=== PATIENT | male | born 1940 | race Caucasian/White ===

== ENCOUNTER 2019-05-15 07:18 | Observation (INO) ==
--- NOTE | 2019-05-15 07:40 | PROVIDER DOCUMENTATION ---
HPI-Neurological Disorder - General Chief Complaint: Stroke-Like Symptoms Stated Complaint: STROKE-LIKE SYMPTOMS Time Seen by Provider: 05/15/19 07:25 Source: patient, family () Allergies/Adverse Reactions: Patient Allergies Allergy/AdvReac Type Severity Reaction Status Date / Time Sulfa (Sulfonamide AdvReac Severe RASH Verified 05/15/19 07:27 Antibiotics) Home Medications: Home Medication List Medication Instructions Recorded Confirmed Last Taken Type Amlodipine [Norvasc] 10 mg PO DAILY 01/12/14 01/13/16 12/05/14 09:00 History Aspirin 81 mg PO DAILY #0 chewtab 01/12/14 03/20/17 12/04/14 Rx Calcium 500 mg PO DAILY 12/05/14 01/13/16 12/05/14 History ATORVAstatin [Lipitor] 20 mg PO DAILY@2100 #0 tablet 12/06/14 01/13/16 Unknown Rx Cyanocobalamin S.l. [Vitamin B-12] 2,500 microgm SL DAILY #30 tablet 12/06/14 03/20/17 Unknown Rx Hydrochlorothiazide 25 mg PO DAILY #0 12/06/14 03/20/17 12/05/14 09:00 Rx Allopurinol 1 tab PO DAILY 03/20/17 03/20/17 Unknown History Amlodipine Besylate 1 tab PO DAILY 03/20/17 03/20/17 Unknown History Clonazepam [Klonopin] 0.5 mg PO QHS 03/20/17 03/20/17 Unknown History Clopidogrel Bisulfate [Plavix] 03/20/17 Unknown History Pravastatin Sodium 1 tab PO DAILY 03/20/17 03/20/17 Unknown History Cephalexin [Keflex] 500 mg PO BID #14 capsule 03/25/17 Unknown Rx - History of Present Illness-Neuro Nature of Presenting Problem: PT IS A 78 Y/O MALE WHO PRESENTS WITH NUMBNESS ON THE LEFT SIDE OF FACE, LEFT ARM AND LEFT LEG SINCE 30 MINUTES PRIOR TO ARRIVAL PER . pER PT WAS GETTING READY TO DROP OFF HIS GRANDSON TO SCHOOL AND STARTED DROPPING THINGS AND FEELING NUMB. HAS BEEN WEAK AND SHAKY IN THE FEET. HAS SOME R TEMPORAL HEADACHE AND SOME NAUSEA (PER HE ALWAYS HAS A HEADACHE). DENIES ANY FALL OR SPEECH CHANGES. PT DENIES ANY DIZZINESS, LIGHTHEADEDNESS OR VOMITING. PER PT HE ALSO HAS MILD CHEST PAIN. DENIES ANY COUGH OR SOB OR NAUSEA OR VOMITING OR FEVER OR ANY URI SYMPTOMS. HAS HX OF HTN AND CAD S/P ANGIOPLASTY. Severity: reports: mild Onset/Duration: reports: abrupt, 1/2 hour ago Timing: reports: improving Context: reports: paresthesia Approximate time patient was last seen normal?: 06:50 Character of Altered Mental Status: reports: unchanged from baseline. denies: disoriented, confused, combative, agitated, trouble concentrating, unresponsive, seizure activity, decreased responsiveness Any recent trauma/injury?: reports: none Character of Deficits: reports: altered sensation New weakness or altered sensation location:: reports: LUE, LLE, left facial Cognitive Baseline: alert, oriented x3 Gait Baseline: stands for transfers Associated Symptoms: reports: decreased ability to walk or stand, chest pain, paresthesia, trouble walking. denies: short of breath, headache, fainting, dizziness, confusion, neck/back pain, fatigue, fever/chills, insomnia, loss of consciousness, muscle spasms, nausea, numbness in legs/feet, diaphoretic, seizures, slurred speech, tingling in legs/feet, vomiting, vision changes, weakness Similar Symptoms Previously?: No Recently seen or treated by another doctor?: No Review of Systems - Adult - REVIEW OF SYSTEMS - ADULT Constitutional: denies: no symptoms reported Eyes: denies: no symptoms reported Ears, Nose, Mouth & Throat: denies: no symptoms reported Cardiovascular: reports: see HPI Respiratory: denies: no symptoms reported Gastrointestinal: denies: no symptoms reported Genitourinary: denies: no symptoms reported Musculoskeletal: denies: no symptoms reported Integumentary: denies: no symptoms reported Neurological: reports: see HPI Psychiatric: denies: no symptoms reported Endocrine: denies: no symptoms reported Hematologic/Lymphatic: denies: no symptoms reported Allergic/Immunologic: denies: no symptoms reported Past History - Adult - PAST MEDICAL HISTORY-ADULT Review of Records: reports: Old Records Reviewed, Nursing Assessment Review, Medications Reviewed, Social history reviewed & non-contributory. Major Childhood Illnesses: reports: denies history Cardiovascular: reports: CAD, HTN, hyperlipidemia Respiratory: reports: denies history Gastrointestinal: reports: denies history Genitourinary: reports: kidney stones Musculoskeletal: reports: intervertebral disc disease Neurological: reports: CVA Psychiatric: reports: denies history Endocrine/Immune: reports: denies history Additional History: gout - PRIOR SURGERIES/PROCEDURES Surgical/Procedure History: reports: cardiac stent, other (lithotripsy) - IMMUNIZATION STATUS Childhood Immunizations: See Nurse Assessment Flu Vaccine: See Nurse Assessment - FAMILY HISTORY Family History: reviewed, not pertinent Physical Exam- Neurological - Physical Exam-Neuro Initial Vital Signs Reviewed: Yes General Appearance: appears well, alert, no apparent distress Eye Exam: bilateral eye: normal inspection, PERRL, EOMI HENMT: normocephalic/atraumatic, moist mucous membranes, normal ENT inspection, pharynx normal Head Injury: no evidence of injury Neck: non-tender, supple Respiratory: lungs clear, normal breath sounds, no respiratory distress, no a ccessory muscle use Cardiovascular: normal peripheral pulses, regular rate, rhythm, no murmur Abdominal Exam: non tender, soft Peripheral Pulses: radial (R): 2+, radial (L): 2+ Extremity: non-tender, normal inspection, 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 Exam: normal hearing, normal speech, PERRL Coordination/Gait: normal finger to nose, normal gait Motor/Sensory: no motor deficit, no pronator drift Neurologic: motor grader operator II-XII nml as tested, grossly normal Integumentary: normal color, warm/dry Psych/Mental Status: normal thought content, normal thought process, oriented x 3, anxious - Glascow Coma Scale Best Eye Response: (4) open spontaneously Best Verbal Response: (5) oriented Best Motor Response: (6) obeys commands Progress - PLAN OF CARE/RESULTS Progress/Plan/Lab Results: Vital Signs - 8 hr 05/15/19 07:22 Temperature 99.2 F Pulse Rate 55 L Respiratory Rate 24 Blood Pressure 210/84 O2 Sat by Pulse Oximetry 100 Laboratory Results - last 24 hr 05/15/19 05/15/19 05/15/19 07:45 07:45 07:45 WBC 4.54 L RBC 4.42 L Hgb 14.2 Hct 40.8 L MCV 92.3 MCH 32.1 H MCHC 34.8 RDW Std Deviation 13.5 Plt Count 161 MPV 11.0 H Immature Gran % (Auto) 0.0 Neut % (Auto) 51.9 Lymph % (Auto) 28.6 [place] % (Auto) 12.3 H Eos % (Auto) 6.8 Baso % (Auto) 0.4 Immature Gran # (Auto) 0.00 Neut # (Auto) 2.35 Lymph # (Auto) 1.30 [place] # (Auto) 0.56 Eos # (Auto) 0.31 Baso # (Auto) 0.02 PT INR PTT (Actin FS) Sodium Potassium Chloride Carbon Dioxide Anion Gap BUN Creatinine BUN/Creatinine Ratio Glucose POC Glucose Calculated Osmolality Calcium Total Bilirubin AST ALT Alkaline Phosphatase Creatine Kinase 71 Troponin T < 0.010 Total Protein Albumin Globulin Albumin/Globulin Ratio 05/15/19 05/15/19 05/15/19 07:45 07:45 07:49 WBC RBC Hgb Hct MCV MCH MCHC RDW Std Deviation Plt Count MPV Immature Gran % (Auto) Neut % (Auto) Lymph % (Auto) [place] % (Auto) Eos % (Auto) Baso % (Auto) Immature Gran # (Auto) Neut # (Auto) Lymph # (Auto) [place] # (Auto) Eos # (Auto) Baso # (Auto) PT 13.8 INR 1.01 PTT (Actin FS) 29.7 Sodium 141 Potassium 4.3 Chloride 107 Carbon Dioxide 25 Anion Gap 10 BUN 18 Creatinine 1.3 H BUN/Creatinine Ratio 14 Glucose 84 POC Glucose 83 Calculated Osmolality 279 Calcium 8.4 L Total Bilirubin 0.80 AST 14 ALT 6 L Alkaline Phosphatase 53 Creatine Kinase Troponin T Total Protein 6.1 L Albumin 3.9 Globulin 2.0 Albumin/Globulin Ratio 2.0 Orders Category Date Time Status Cardiac Monitoring DIRECTED Care 05/15/19 07:25 Active Finger Stick Blood Sugar (ED) DIRECTED Care 05/15/19 07:25 Completed Saline Loc NOW Care 05/15/19 07:25 Active CHEST-PORTABLE [RAD] Stat Exams 05/15/19 07:[address] HEAD W/O CONTRAST [CT] Stat Exams 05/15/19 07:30 Completed CBC WITH ELECTRONIC DIFF [HEME] Stat Lab 05/15/19 07:45 Completed COMPREHENSIVE METABOLIC PANEL [CHEM] Stat Lab 05/15/19 07:45 Completed Cardiac Profile [CK PROFILE] [SP CHEM] Stat Lab 05/15/19 07:45 Completed PROTIME WITH INR [COAG] Stat Lab 05/15/19 07:45 Completed PTT [COAG] Stat Lab 05/15/19 07:45 Completed TROPONIN T Stat Lab 09/19/19 07:[address] W/POSS RFLX CULT [URINALYSIS] Stat Lab 05/15/19 07:25 Uncollected URINE DRUG SCREEN PL Stat Lab 05/15/19 07:25 Uncollected Aspirin Med 05/15/19 08:08 Discontinued 325 mg PO NOW ONE Ondansetron [Zofran] Med 05/15/19 08:12 Discontinued 4 mg IV NOW ONE EKG [EKG] Stat Ther 05/15/19 07:25 Draft Result Diagrams: 05/15/19 07:45 05/15/19 07:45 - REASSESSMENT Reassessment #1 Time Reassessed: 09:45 Status: improving - CONSULTS/PCP/HOSPITALIST Notification #1 *Consult/PCP/Hospitalist*: DR DRISCOLL Time Discussed: 09:53 Consult Disposition: Admit Departure - Departure Date of Disposition Decision: 05/15/19 Time of Disposition Decision: 09:55 DIAGNOSIS: TIA (transient ischemic attack), Uncontrolled hypertension, Sinus bradycardia Disposition: HOME 01 Certified Medical Emergency: Emergent Condition: Stable Referrals and Follow-Ups: Paula Chan MD [Primary Care Provider] - - Critical Care Note This patient required my direct & personal management of CC.: No Attestation - Physician/ GERRI Attestation Patient care was provided by Advanced Practice Provider:: No The physician spent face to face time with patient:: Yes Advanced Practice Provider documentation review:: Supervising physician onsite and consulted in the evaluation and care of this patient. The physician did have a face to face encounter with the patient. - NIH Stroke Scale NIH Type: Initial Evaluation Level of Consciousness: 0-Alert LOC Questions (ask month and age): 0-Answers Both Correctly LOC Commands (ask to open & close eyes;make a fist, let go): 0-Obeys Both Correctly Best Gaze (horizontal eye movement): 0-Normal Visual (use finger movement, counting or visual threat): 0-No Visual Loss Facial Palsy (show teeth or raise eyebrows & close eyes tght: 0-Symmetrical Movement Motor Function-left arm: 0-Normal Motor Function-right arm: 0-Normal Motor Function-left le-Normal Motor Function-right le-Normal Limb Ataxia(riqkak-dexn-dczxob, or heel to gaming): 0-Untestable Sensory(pin prick to face,arms,trunk,legs-compare side/side): 1-Mild to Moderate Decrease in Sensation (LLE - HAS MILD DECREASED SENSATION COMPAREED TO REST OF THE EXTREMITIES) Best Language(name item/read sentence.Ex-Down to Earth): 0-No Aphasia Dysarthria(Pt read words or say words Ex.Mama,Tip-Top,Thanks: 0-Normal Articulation Extinction and Inattention: 0-Normal NIH Total Score: 1
--- NOTE | 2019-05-15 07:46 | Diag Imaging Result Doc PS360 ---
EXAM: CT HEAD W/O CONTRAST - 05/15/2019 HISTORY: stroke like sym TECHNIQUE: CT head without contrast COMPARISON: 03/20/2017 FINDINGS: There are chronic microvascular ischemic changes. There is stable old lacunar infarct versus dilated perivascular space at the inferior right basal ganglia region. There is no indication of recent infarct, although acute infarcts may not be immediately visible. There are atherosclerotic calcifications noted at the base the brain. There is no evidence of intracranial hemorrhage, mass effect, midline shift, or hydrocephalus. There is no evidence of skull fracture. Visualized portions of paranasal sinuses and mastoid air cells appear essentially clear. IMPRESSION: Chronic microvascular ischemic changes No visible acute intracranial abnormality. No hemorrhage or mass effect. This exam was performed using automated exposure control, adjustment of mA or kV according to patient size, and/or use of iterative reconstruction technique. Electronically signed by Boaz Negrete 05/15/2019 7:43 AM
--- NOTE | 2019-05-15 07:48 | Diag Imaging Result Doc PS360 ---
EXAM: CHEST-PORTABLE - 05/15/2019 HISTORY: TIA TECHNIQUE: Portable chest COMPARISON: 03/20/2017 FINDINGS: Heart size appears within normal limits. There is some tortuosity of the thoracic aorta similar to prior. There is slight elevation of the left hemidiaphragm. The lungs appear clear. There is no pleural effusion or pneumothorax identified. IMPRESSION: Slight elevation of left hemidiaphragm. No other evidence of acute disease. Electronically signed by Boaz Negrete 05/15/2019 7:45 AM
[2019-05-15 07:58] LABS: BASO# 0.02 X1000 (0.0-0.2); BASO% 0.4 % (0.0-0.8); EOS# 0.31 X1000 (0.0-0.7); EOS% 6.8 % (0.0-10.0); HEMATOCRIT 40.8 % (42.0-52.0); HEMOGLOBIN 14.2 g/dL (14.0-18.0); LYMPH% 28.6 % (20.5-51.1); MCH 32.1 PG (27-31); MCHC 34.8 g/dL (33-37); MCV 92.3 FL (81-99); MONO# 0.56 X1000 (0.11-0.59); MONO% 12.3 % (1.7-9.3); NEUT# 2.35 X1000 (1.4-6.5); NEUT% 51.9 % (42.2-75.2); PLT 161 X1000 (130-400); RBC 4.42 XMIL (4.7-6.1); RDW 13.5 % (11.5-14.5); WBC 4.54 X1000 (4.8-10.8)
--- NOTE | 2019-05-15 08:05 | EKG Report ---
Test Performed on : 05/15/2019 07:47:42 AM Test Reason : TIA Blood Pressure : / mmHG Vent. Rate : 047 BPM Atrial Rate : 047 BPM P-R Int : 180 ms QRS Dur : 094 ms QT Int : 446 ms P-R-T Axes : 052 -09 077 degrees QTc Int : 394 ms Sinus bradycardia. Cannot rule out Anterior infarct , age undetermined Abnormal ECG When compared with ECG of 20-MAR-2017 19:02, HI interval has decreased T wave amplitude has increased in Anterior leads Unconfirmed Result
[2019-05-15] MEDS ORDERED: ASPIRIN PO ONE (08:08)
[2019-05-15] MEDS ORDERED: ZOFRAN IV ONE (08:12)
[2019-05-15 08:15] LABS: INR 1.01; PROTIME 13.8 Seconds (11.0-16.0)
[2019-05-15 08:16] LABS: PTT 29.7 Seconds (22.3-41.8)
[2019-05-15 09:10] LABS: AGAP 10; BUN 18 mg/dL (8-22); CALCIUM 8.4 mg/dL (8.8-10.2); COSMO 279; CREATININE 1.3 mg/dL (0.7-1.2); GLUCOSE 84 mg/dL (70-104); TCO2 25 mmol/L (25-35)
[2019-05-15 09:11] LABS: ALBUMIN 3.9 g/dL (3.5-5.0); ALKALINE PHOSPHATASE 53 U/L (32-122); GPT 6 U/L (10-44); TOTAL PROTEIN 6.1 g/dL (6.3-8.3)
[2019-05-15 09:12] LABS: CHLORIDE 107 mmol/L (98-107); GOT 14 U/L (10-34); POTASSIUM 4.3 mmol/L (3.5-5.1); SODIUM 141 mmol/L (136-145)
--- NOTE | 2019-05-15 10:03 | ED EKG INTERP ---
This chart was entered by Paty Jama Scribe, acting as scribe for Rika Albright MD. EKG Interpretation - EKG Time of EKG reading by physician:: 07:47 EKG Read and Signed by:: Rika Albright EKG Interpretation (*Must complete 3 of following elements*): Abnormal Rate: 47 Rhythm: sinus bradycardia [place]: normal QRS: normal [place] Interval: normal ST Wave: normal Comments: cannopt rule out anterior infarct, age undetermined - EKG # 2 Time of EKG reading by physician:: 09:21 EKG Read and Signed by:: Rika Albright EKG Interpretation (*Must complete 3 of following elements*): Abnormal Rate: 44 Rhythm: marked sinus bradycardia [place]: normal QRS: normal [place] Interval: normal ST Wave: normal Prior EKG Comparison: unchanged from prior Comments: cannot rule out anterior infarct, age undetermined Attestation - Physician/ GERRI Attestation Patient care was provided by Advanced Practice Provider:: No The physician spent face to face time with patient:: Yes Advanced Practice Provider documentation review:: Supervising physician onsite and consulted in the evaluation and care of this patient. The physician did have a face to face encounter with the patient. This chart was documented by the indicated scribe, (Paty Jama Scribe) and accurately reflects the services I performed and decisions made by meNatalee Aslam A., MD, as attested by the provider's signature.
[2019-05-15] MEDS ORDERED: NORVASC PO ONE (10:05)
--- NOTE | 2019-05-15 12:06 | EKG Report ---
Test Performed on : 05/15/2019 09:21:45 AM Test Reason : ER Blood Pressure : / mmHG Vent. Rate : 044 BPM Atrial Rate : 044 BPM P-R Int : 196 ms QRS Dur : 084 ms QT Int : 458 ms P-R-T Axes : 049 -05 058 degrees QTc Int : 391 ms Marked sinus bradycardia. Cannot rule out Anterior infarct (cited on or before 15-MAY-2019) Abnormal ECG When compared with ECG of 15-MAY-2019 07:47, (Unconfirmed) No significant change was found Unconfirmed Result
[2019-05-15] MEDS ORDERED: APRESOLINE IV ONE (12:15)
[2019-05-15] MEDS ORDERED: ZOFRAN IV PRN (12:16)
[2019-05-15] MEDS: TYLENOL PO PRN ×2 (12:29→19:54)
[2019-05-15 12:54] LABS: CHOLESTEROL 127 mg/dL (0-200); HDL 32 mg/dL (35-55); LDL 79 mg/dL; TRIGLYCERIDES 78 mg/dL (39-160); VLDL 16 mg/dL
--- NOTE | 2019-05-15 14:39 | Vascular Study Report ---
EXAM: Carotid Ultrasound - 05/15/2019 HISTORY: TIA vs CVA TECHNIQUE: Carotid flow studies COMPARISON: None. FINDINGS: There is atherosclerotic plaquing at the common carotid, carotid bulb, and proximal internal carotid on the right. Maximal systolic velocity at the right internal carotid is 59 cm/s, and maximum diastolic velocity is 10 cm/s. The right internal to common carotid systolic velocity ratio is 0.70. The flow velocities and ratio are consistent with 0-39% stenosis at the right internal carotid. The right vertebral demonstrates antegrade flow. There is atherosclerotic plaquing at the common carotid, carotid bulb, and proximal and mid internal carotid on the left. Maximum systolic velocity at the left internal carotid is 81 cm/s, and maximum diastolic velocity is 12 cm/s. The left internal to common carotid systolic velocity ratio is 1.13. The flow velocities and ratio are consistent with 0-39% stenosis at the left internal carotid. The left vertebral demonstrates antegrade flow. IMPRESSION: Atherosclerotic plaquing in bilateral carotid systems. 0-39% stenosis at right internal carotid. 0-39% stenosis at left internal carotid. Electronically signed by Boaz Negrete 05/15/2019 2:37 PM
[2019-05-15] MEDS: NORVASC PO SCH (14:58)
[2019-05-15 17:20] LABS: BILIRUBIN URINE NEGATIVE (NEGATIVE); BLOOD URINE NEGATIVE (NEGATIVE); CLARITY CLEAR (CLEAR); COLOR YELLOW; GLUCOSE URINE NEGATIVE (NEGATIVE); KETONE URINE NEGATIVE (NEGATIVE); LEUKOCYTES URINE NEGATIVE (NEGATIVE); NITRITE URINE NEGATIVE (NEGATIVE); PROTEIN URINE NEGATIVE (NEGATIVE); SP GRAVITY URINE 1.015; UROBILINOGEN URINE NORMAL
[2019-05-15 17:22] LABS: URINE BACTERIA NEGATIVE /HFP; URINE EPITHELIAL CELLS <10 /HPF (<10); URINE RBC <10 /HPF (<10); URINE SOURCE CLEAN CATCH; URINE WBC <10 /HPF (<10)
[2019-05-15 17:29] LABS: UR AMPHETAMINES QUAL NONE DETECTED (NONE DETECT); UR BARBITUATES QUAL NONE DETECTED (NONE DETECT); UR BENZODIAZEPIN QUAL NONE DETECTED (NONE DETECT); UR CANNABINOIDS QUAL NONE DETECTED (NONE DETECT); UR COCAINE QUAL NONE DETECTED (NONE DETECT); UR METHADONE QUAL NONE DETECTED (NONE DETECT); UR METHAMPHETAMINE QUAL NONE DETECTED (NONE DETECT); UR OPIATES QUAL NONE DETECTED (NONE DETECT); UR OXYCODONE QUAL NONE DETECTED (NONE DETECT); UR PCP QUAL NONE DETECTED (NONE DETECT); UR PROPOXYPHENE QUAL NONE DETECTED (NONE DETECT); UR TCA QUAL NONE DETECTED (NONE DETECT)
--- NOTE | 2019-05-15 19:07 | HISTORY AND PHYSICAL ---
CHIEF COMPLAINT: Stroke-like symptoms. HISTORY OF PRESENT ILLNESS: This is an 78-year-old gentleman, with a history of bradycardia, coronary artery disease, CVA in 2014, who presented to the emergency room with a sudden onset of left arm, left leg numbness and decreased sensation, unable to hold things with his left hand, and numbness to the left side of his face with slurred speech. This started at approximately 7 a.m. He denied any syncope or dizziness, any chest pain or palpitations. He denies any recent injury. CT scan revealed chronic microvascular ischemic changes with no visible acute intracranial abnormality, and no hemorrhage or mass effect. At the time of my exam, approximately 12:00, the patient denies any symptoms. His speech is clear. He has no facial droop. He states he feels that he is at his baseline. The and other family member state that they notice no deficits. The patient was admitted to the hospital in November [address] of the head and neck at that time revealed no evidence of significant stenosis. Brain MRI revealed a recent left basal ganglia lacunar infarct in addition to moderate microvascular ischemic changes. PAST MEDICAL HISTORY: 1. Gout. 2. Coronary artery disease, status post stent in 2017. Lexiscan, 05/06/2019, revealed a negative Lexiscan stress electrocardiogram with myocardial perfusion images revealing low-grade fixed defect in the base of the inferior wall, suggestive of an attenuation defect. Cannot rule out scar, which was present in a prior echocardiogram. Ejection fraction by gated SPECT was 68%. Of note, the patient did have chest pain with Lexiscan injection during the Lexiscan infusion, for which she was given 125 mg of aminophylline. 3. Echocardiogram, on 05/06/2019, revealed ejection fraction of 60% with diastolic dysfunction. 4. Hyperlipidemia. 5. History of cerebrovascular accident with MRI in 2015 as stated above. He has no deficits. 6. Chronic headache that he has had for greater than 10 years. PAST SURGICAL HISTORY: 1. Cardiac stent. 2. Kidney stone removal. 3. Cataract surgery. SOCIAL HISTORY: He denies any alcohol, tobacco, or illicit drug use. 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 FAMILY HISTORY: Father had a CVA in his 70s. ALLERGIES: Sulfa. HOME MEDICATIONS: A list will be obtained by the nursing staff and once verified, will review, restart as appropriate. REVIEW OF SYSTEMS: Discussed with the patient with pertinent positives stated in the HPI. He denied any syncope, dizziness, any chest pain or palpitations, shortness of breath, cough, fever, chills, any nausea, vomiting, diarrhea, constipation, black or bloody vomitus or stools, hematuria, dysuria, frequency, urgency. PHYSICAL EXAMINATION: GENERAL: This is an 78-year-old gentleman who is walking in his room in no distress. VITAL SIGNS: Blood pressure is 191/75 with a heart rate of 56, respirations are 18, temperature is 97.7 degrees, with room air saturation 99%. EYES: Pupils are equal, round, react to light. EOMs are intact. Sclerae are anicteric. HEAD: Normocephalic, atraumatic. ENT: Mucous membranes are moist. NECK: Supple with trachea midline. No JVD. CARDIOVASCULAR: Regular rate and rhythm. S1 and S2 appreciated. No murmur. EXTREMITIES: Calves are nontender bilaterally. He has no lower extremity edema with peripheral pulses palpable x4 extremities. PULMONARY: Breath sounds are clear with no increased work of breathing noted. Chest rises and falls symmetric with respiration. GASTROINTESTINAL: Abdomen is soft, nontender, and nondistended with bowel sounds in all 4 quadrants. GENITOURINARY: No CVA nor suprapubic tenderness. SKIN: Warm and dry. NEUROLOGIC: Forehead is spared. He has equal nasal flaring. No tongue or uvula deviation. Speech is clear. No facial droop. EOMS intact. Shoulder shrug is equal. No plantar drift. He has 3/3 muscle strength to 4 extremities. Zmpspl-qf-owle 3/3 bilateral. Gait is steady. LABS: WBC is 4.5, with hemoglobin 14.2, hematocrit 40.8, platelets of 161,000. Sodium 141, potassium 4.3, BUN 18, creatinine 1.3, and glucose of 83. Troponin is less than 0.010. CT of the head revealed chronic microvascular ischemic changes. No visible acute intracranial abnormality. No hemorrhage or mass effect. Chest x-ray revealed slight elevation of left hemidiaphragm. No other evidence of acute disease. ASSESSMENT AND PLAN: 1. Hypertension. 10 mg of hydralazine now, identify his home medications and continue. 2. Sinus bradycardia. Telemetry, In looking back at the patient's past records, heart rates have been in the 40s to 60 range since back in 2013, 3. Transient ischemic attack. Symptoms have resolved completely, according to the patient, and family members do state that he is back to his baseline. We will continue with neurologic checks. Will check a lipid panel. carotid ultrasound. Of note, the patient had an echocardiogram 9 days prior. 4. Chronic kidney disease. Baseline creatinine has been 1.2 to 1.3. monitor labs daily. 5. History of cerebrovascular accident. Aware. 6. History of gout. The patient denies any symptoms. Further treatments pending hospital course. Plan was discussed with Dr. Lowe. Dictated by PABLO Champion for Fredy Lowe MD cc: PABLO Champion MD [facility]
[2019-05-15] MEDS ORDERED: BENADRYL PO PRN (22:48)
--- NOTE | 2019-05-16 02:11 | HISTORY AND PHYSICAL ---
ADDENDUM: Patient seen and examined by myself. Full note dictated and discussed with nurse practitioner. Patient presented to the hospital with stroke-like symptoms. The family notes that he had some slurred speech, facial drooping and left-sided weakness. All of this appears to be improved. We are going to admit him to the hospital, treat in the usual fashion, check carotid, place him on cholesterol medicine. Further order as needed. cc: Fredy Lowe MD
[2019-05-16 07:13] LABS: HEMATOCRIT 39.1 % (42.0-52.0); HEMOGLOBIN 13.5 g/dL (14.0-18.0); MCHC 34.5 g/dL (33-37); MCV 92.7 FL (81-99); RBC 4.22 XMIL (4.7-6.1); RDW 13.5 % (11.5-14.5)
[2019-05-16 07:41] LABS: ALBUMIN 3.5 g/dL (3.5-5.0); CALCIUM 8.1 mg/dL (8.8-10.2); CREATININE 1.2 mg/dL (0.7-1.2); POTASSIUM 3.7 mmol/L (3.5-5.1); TOTAL BILIRUBIN 0.6 mg/dL (0.20-1.00); TOTAL PROTEIN 5.5 g/dL (6.3-8.3)
[2019-05-16 08:17] VITALS: BP 182/67
[2019-05-16] MEDS: ZYLOPRIM PO SCH ×2 (08:21→08:22)
[2019-05-16] MEDS: NORVASC PO SCH (08:21)
[2019-05-16] MEDS ORDERED: VITAMIN B-12 SL SCH (09:00)
[2019-05-16] MEDS ORDERED: PAXIL PO SCH (09:00)
[2019-05-16] MEDS ORDERED: PRINIVIL PO SCH (09:00)
[2019-05-16] MEDS ORDERED: ASPIRIN PO SCH (09:00)
--- NOTE | 2019-05-16 14:48 | DISCHARGE SUMMARY ---
ADMISSION DATE: 05/15/2019 DISCHARGE DATE: 05/16/2019 DIAGNOSES: 1. Hypertension. 2. Transient ischemic attack. 3. Sinus bradycardia. 4. Chronic kidney disease. 5. History of prior cerebrovascular accident. 6. History of gout. DIAGNOSTICS: 1. Chest x-ray revealed slight elevation of left hemidiaphragm. No other evidence of acute disease. 2. CT of the head without contrast revealed chronic microvascular ischemic changes. No visible acute intracranial abnormality. No hemorrhage or mass effect. 3. Carotid Doppler, bilateral atherosclerotic plaquing in bilateral carotid systems, 0 to 39% stenosis at bilateral internal carotids. HOSPITAL COURSE: Mr. Abdullahi presented to the emergency room after having a sudden onset of left arm and left leg numbness and decreased sensation as well as slurred speech. This resolved shortly after arriving at the hospital and symptoms have not recurred. Workup as stated above. He was noted to be in sinus bradycardia in the 40s to 60 range and in reviewing his records, this has been his normal heart rate while in the hospital going back to 2013. He was hypertensive on arrival with blood pressure of 210/84 for which she was given hydralazine at 10 mg. Blood pressures decreased in the 160 to 180 over 60 to 70 range. We were able to identify his home medications and we did restart these this morning prior to discharge. DISCHARGE PHYSICAL EXAM: Vital signs: Blood pressure is 180/60 with a heart rate of 51, respirations are 18, temperature 97.7 degrees with room air saturations 98%. Cardiovascular: Regular rate and rhythm. S1, S2 appreciated. Calves are nontender bilateral with peripheral pulses palpable x4 extremities. He has no lower extremity edema. Pulmonary: Breath sounds are clear. No increased work of breathing noted. Chest rises and falls symmetric respiration. Gastrointestinal: Abdomen soft, nontender, nondistended. Bowel sounds in all 4 quadrants. Neurologic: Forehead is spared. He has equal nasal flaring. No tongue or uvula deviation. Speech is clear. No facial droop. EOMs are intact. Shoulder shrug is equal. No plantar drift. 3/3 muscle strength 4 extremities. [id number] 3/3 bilateral, heel knee to gaming 3/3 bilateral. Gait is steady. FOLLOWUP: With Dr. Paula Chan 05/19/2019 at 11:10 a.m.. He is being discharged home with family members in stable condition. He and his family members have been instructed to call to be seen sooner or return to the ER for any syncope, dizziness, chest pain, palpitations, shortness of breath, cough, temperature greater 101, any chills, any nausea, vomiting, diarrhea, constipation, black or bloody vomitus or stools, hematuria, dysuria, frequency, urgency, any change in gait, any recurrence of change in sensation to extremities, weakness, facial droop, change in speech or for any questions or concerns that he may have. He has been discharged home in stable condition with family members. Dictated by PABLO Champion for Fredy Lowe MD cc: PABLO Champion MD
--- NOTE | 2019-05-17 03:44 | DISCHARGE SUMMARY ---
ADMISSION DATE: 05/15/2019 DISCHARGE DATE: 05/16/2019 ADDENDUM: Patient seen and examined by myself. Full note dictated and discussed with nurse practitioner. On discharge, patient is awake, alert. All of his withdrawal symptoms have completely resolved. He is in no distress. We are going to discharge him home. He needs to take blood pressure medication as well as cholesterol medicine. Discussed this with Dennys Bradly. Please see full note. cc: Fredy Lowe MD
== END 2019-05-16 09:30 | disposition home or self-care (01) ==
LOC: P.ED 07:18 → P.MEDSURG 07:18 → SUATTDRO 10:10
PROVIDERS: ADMIT Family Medicine; ATTEND Family Medicine

== ENCOUNTER 2019-05-27 07:22 | Inpatient (IN) ==
[2019-05-27] MEDS ORDERED: ZOFRAN IV ONE ×2 (07:49→09:09)
[2019-05-27] MEDS ORDERED: MORPHINE IV ONE (07:49)
[2019-05-27 08:32] LABS: BASO# 0.01 X1000 (0.0-0.2); BASO% 0.2 % (0.0-0.8); EOS# 0.26 X1000 (0.0-0.7); HEMATOCRIT 40.4 % (42.0-52.0); HEMOGLOBIN 14.3 g/dL (14.0-18.0); IMM GRAN# 0.01 X1000 (0.0-0.04); IMM GRAN% 0.2 % (0.0-0.5); LYMPH# 1.57 X1000 (1.2-3.4); MCH 32.4 PG (27-31); MCHC 35.4 g/dL (33-37); MCV 91.4 FL (81-99); MONO# 0.54 X1000 (0.11-0.59); MONO% 10.3 % (1.7-9.3); MPV 11.4 FL (7.4-10.4); NEUT# 2.85 X1000 (1.4-6.5); NEUT% 54.3 % (42.2-75.2); PLT 141 X1000 (130-400); RBC 4.42 XMIL (4.7-6.1); RDW 13.2 % (11.5-14.5); WBC 5.24 X1000 (4.8-10.8)
[2019-05-27 08:37] LABS: PROTIME 13.7 Seconds (11.0-16.0)
[2019-05-27 08:49] LABS: ALBUMIN 4.1 g/dL (3.5-5.0); CREATININE 1.2 mg/dL (0.7-1.2); MAGNESIUM 1.8 mg/dL (1.5-2.7); POTASSIUM 4.6 mmol/L (3.5-5.1); TOTAL BILIRUBIN 0.8 mg/dL (0.20-1.00); TOTAL PROTEIN 5.9 g/dL (6.3-8.3)
[2019-05-27] MEDS ORDERED: APRESOLINE IV ONE ×2 (08:54→09:53)
[2019-05-27] MEDS ORDERED: ATIVAN IV ONE (09:09)
--- NOTE | 2019-05-27 09:40 | Diag Imaging Result Doc PS360 ---
EXAM: CHEST-PORTABLE HISTORY: sob TECHNIQUE: Chest single view COMPARISON: 05/15/2019 FINDINGS: The lungs are well expanded. The heart is not enlarged. The vessels are mildly distended. There are no infiltrates. No effusion identified. IMPRESSION: Mild pulmonary edema Electronically signed by Shankar Lemus 05/27/2019 9:37 AM
--- NOTE | 2019-05-27 10:08 | PROVIDER DOCUMENTATION ---
This chart was entered by Paty Jama Scribe, acting as scribe for Hazel Scott DO. HPI-General Adult - General Chief Complaint: Stroke-Like Symptoms Stated Complaint: "STROKE SYMPTOMS" Time Seen by Provider: 05/27/19 07:30 Source: patient, family () Allergies/Adverse Reactions: Patient Allergies Allergy/AdvReac Type Severity Reaction Status Date / Time Sulfa (Sulfonamide AdvReac Severe RASH Verified 05/27/19 07:36 Antibiotics) Home Medications: Home Medication List Medication Instructions Recorded Confirmed Last Taken Type Amlodipine [Norvasc] 10 mg PO DAILY 01/12/14 05/27/19 12/05/14 09:00 History Aspirin 81 mg PO DAILY #0 chewtab 01/12/14 05/27/19 12/04/14 Rx Cyanocobalamin S.l. [Vitamin B-12] 2,500 microgm SL DAILY #30 tablet 12/06/14 05/27/19 Unknown Rx Allopurinol 1 tab PO DAILY 03/20/17 05/27/19 Unknown History Pravastatin Sodium 1 tab PO HS 03/20/17 05/27/19 Unknown History Paroxetine HCl 20 mg PO DAILY 05/15/19 05/27/19 Unknown History LISINOpril [Prinivil] 5 mg PO DAILY #30 tab 05/16/19 05/27/19 Unknown Rx Clopidogrel [Plavix] 75 mg PO DAILY #30 tab 05/28/19 Unknown Rx Hydralazine [Apresoline] 25 mg PO TID PRN #90 tab 05/28/19 Unknown Rx - History of Present Illness -Gen Adult Nature of Presenting Problems: 78 yom presents to the ed via POV with his . pt had onset of ROSE last night but when woke @ 0700 am ROSE had worsened and pt had nausea, sob and chest pressure. pt sts sx have improved and sts ROSE are chronic. He is still tea rful and very anxious in appearance. He denies trauma. Location of Pain/Injury: reports: head, chest Quality of Pain: reports: throbbing Severity: reports: moderate Onset/Duration: reports: last night Timing: reports: still present, getting worse Context/Activities at Onset: reports: light activity Modifying Factors: worse with: movement Associated Symptoms: reports: chest pain (pressure), headaches, nausea, shortness of breath. denies: back/neck pain, cough, diaphoresis, dizziness, fever/chills, sensory/motor loss, vomiting Similar Symptoms Previously?: Yes (sts possible CVA 2 weeks prior ) Recently seen or treated by another doctor?: No Review of Systems - Adult - REVIEW OF SYSTEMS - ADULT Constitutional: denies: chills, fever Eyes: denies: blurred vision, double vision Ears, Nose, Mouth & Throat: reports: no symptoms reported Cardiovascular: reports: see HPI, chest pain. denies: palpitations, syncope Respiratory: reports: shortness of breath. denies: cough, wheezing Gastrointestinal: reports: see HPI, nausea. denies: diarrhea, vomiting Genitourinary: reports: no symptoms reported Musculoskeletal: denies: back pain, neck pain Integumentary: reports: no symptoms reported Neurological: reports: see HPI, headache/migraines. denies: ataxia, dizziness/vertigo, loss of balance, slurred speech, syncope, tremors Psychiatric: reports: no symptoms reported Endocrine: reports: no symptoms reported Hematologic/Lymphatic: reports: no symptoms reported Allergic/Immunologic: reports: no symptoms reported All Other Systems: Reviewed and Negative Past History - Adult - PAST MEDICAL HISTORY-ADULT Review of Records: reports: Old Records Reviewed, Nursing Assessment Review, Medications Reviewed, Social history reviewed & non-contributory. Major Childhood Illnesses: reports: denies history Cardiovascular: reports: CAD, HTN, hyperlipidemia Respiratory: reports: denies history Gastrointestinal: reports: denies history Genitourinary: reports: kidney stones Musculoskeletal: reports: intervertebral disc disease Neurological: reports: CVA, headaches/migraines. denies: stroke deficits Psychiatric: reports: denies history Endocrine/Immune: reports: denies history Additional History: gout - PRIOR SURGERIES/PROCEDURES Surgical/Procedure History: reports: cardiac stent, other (lithotripsy) - IMMUNIZATION STATUS Childhood Immunizations: See Nurse Assessment Flu Vaccine: See Nurse Assessment - FAMILY HISTORY Family History: reviewed, not pertinent - SOCIAL HISTORY Smoking: cigar (x2 daily) Provider spent 3-5 mins advising pt. on dangers of tobacco.: Discussed manners to quit use, and f/u contacts for add'l counseling. Substance Use: denies Alcohol Use Frequency: never Living Situation: family Physical Exam-General - PHYSICAL EXAM-ADULT Initial Vital Signs Reviewed: Yes (noted BP-212/90 Hr-48) - CONSTITUTIONAL General Appearance: appears well, alert, no apparent distress (no physcial sx noted on exam) - EYES Eyes: PERRL/EOMI, pink conjunctivae - HEAD, EARS, NOSE, MOUTH & THROAT HENMT: moist mucous membranes - NECK Neck: non-tender, full range of motion, supple, normal inspection - RESPIRATORY Respiratory: chest non-tender, lungs clear, normal breath sounds - CARDIOVASCULAR Cardiovascular: normal peripheral pulses, bradycardia (48) - CHEST (BREASTS) Chest/Breast: deferred - GASTROINTESTINAL (ABDOMEN) Abdominal Exam: normal bowel sounds, non tender, soft - LYMPHATIC Lymphatic: no adenopathy - MUSCULOSKELETAL Back Exam: normal inspection, no CVA tenderness, no vertebral tenderness Extremity: normal range of motion, normal inspection, normal capillary refill, pelvis stable - SKIN Integumentary: normal color, normal turgor, warm/dry - NEUROLOGIC Neurologic: piece cutter II-XII nml as tested - PSYCHIATRIC Psych/Mental Status: normal mood/affect, normal thought content, normal thought process, oriented x 3 Progress - PLAN OF CARE/RESULTS Progress/Plan/Lab Results: Vital Signs - 8 hr 05/27/19 07:26 05/27/19 07:38 05/27/19 07:44 Temperature 97.6 F Pulse Rate 48 L Respiratory Rate 20 Blood Pressure 212/90 104/72 140/82 O2 Sat by Pulse Oximetry 99 05/27/19 07:54 05/27/19 08:16 05/27/19 08:20 Temperature Pulse Rate 61 49 L 50 L Respiratory Rate 21 22 13 Blood Pressure 171/109 218/88 215/87 O2 Sat by Pulse Oximetry 98 97 98 05/27/19 08:45 05/27/19 08:46 Temperature Pulse Rate 53 L 50 L Respiratory Rate 17 16 Blood Pressure 233/93 233/93 O2 Sat by Pulse Oximetry 97 97 Laboratory Results - last 24 hr 05/27/19 05/27/19 05/27/19 07:42 07:42 07:42 WBC 5.24 RBC 4.42 L Hgb 14.3 Hct 40.4 L MCV 91.4 MCH 32.4 H MCHC 35.4 RDW Std Deviation 13.2 Plt Count 141 MPV 11.4 H Immature Gran % (Auto) 0.2 Neut % (Auto) 54.3 Lymph % (Auto) 30.0 Bee % (Auto) 10.3 H Eos % (Auto) 5.0 Baso % (Auto) 0.2 Immature Gran # (Auto) 0.01 Neut # (Auto) 2.85 Lymph # (Auto) 1.57 Bee # (Auto) 0.54 Eos # (Auto) 0.26 Baso # (Auto) 0.01 PT INR Sodium 142 Potassium 4.6 Chloride 107 Carbon Dioxide 26 Anion Gap 10 BUN 17 Creatinine 1.2 Estimated GFR/1.73 m2 58 BUN/Creatinine Ratio 14 Glucose 93 POC Glucose Calculated Osmolality 284 Calcium 9.0 Magnesium 1.8 Total Bilirubin 0.80 AST 14 ALT 7 L Alkaline Phosphatase 56 Troponin T < 0.010 Total Protein 5.9 L Albumin 4.1 Globulin 2.0 Albumin/Globulin Ratio 2.0 05/27/19 05/27/19 07:42 07:45 WBC RBC Hgb Hct MCV MCH MCHC RDW Std Deviation Plt Count MPV Immature Gran % (Auto) Neut % (Auto) Lymph % (Auto) Bee % (Auto) Eos % (Auto) Baso % (Auto) Immature Gran # (Auto) Neut # (Auto) Lymph # (Auto) Bee # (Auto) Eos # (Auto) Baso # (Auto) PT 13.7 INR 1.00 Sodium Potassium Chloride Carbon Dioxide Anion Gap BUN Creatinine Estimated GFR/1.73 m2 BUN/Creatinine Ratio Glucose POC Glucose 76 Calculated Osmolality Calcium Magnesium Total Bilirubin AST ALT Alkaline Phosphatase Troponin T Total Protein Albumin Globulin Albumin/Globulin Ratio Orders Category Date Time Status Cardiac Monitoring DIRECTED Care 05/27/19 07:36 Active Saline Loc NOW Care 05/27/19 07:36 Active CHEST-PORTABLE [RAD] Stat Exams 05/27/19 07:48 Ordered CTA [CT ANGIOGRAM HEAD] [CT] Stat Exams 05/27/19 07:46 Ordered CBC WITH DIFF [HEME] Stat Lab 05/27/19 07:42 Completed COMPREHENSIVE METABOLIC PANEL [CHEM] Stat Lab 05/27/19 07:42 Completed MAGNESIUM [CHEM] Stat Lab 05/27/19 07:42 Completed PROTIME WITH INR [COAG] Stat Lab 05/27/19 07:42 Completed TROPONIN T Stat Lab 05/27/19 07:42 Completed Hydralazine [Apresoline] Med 05/27/19 08:54 Discontinued 10 mg IV NOW ONE Lorazepam [Ativan] Med 05/27/19 09:09 Discontinued 1 mg IV NOW ONE Morphine Med 05/27/19 07:49 Discontinued 4 mg IV NOW ONE Ondansetron [Zofran] Med 05/27/19 07:49 Discontinued 4 mg IV NOW ONE Ondansetron [Zofran] Med 05/27/19 09:09 Discontinued 4 mg IV NOW ONE EKG [EKG] Stat Ther 05/27/19 07:37 Ordered The pt's speech slurring had essentially resolved by my assessment of him. He had no focal deficits on exam. His NIH Stroke Scale is 0. Head CT wnl. He had some improvement of his BP with hydralazine but remained with SBP around 200. He was admitted to Dr Lowe for further eval and tx. Result Diagrams: 05/27/19 07:42 05/27/19 07:42 - REASSESSMENT Reassessment #1 Time Reassessed: 10:10 Status: unchanged (pt is in no distress and is resting in bed) - XRAY 1 XRAY: Bilateral XRAY Study: Chest Impression: See EMR Report (EXAM: CHEST-PORTABLE HISTORY: sob TECHNIQUE: Chest single view COMPARISON: 05/15/2019 FINDINGS: The lungs are well expanded. The heart is not enlarged. The vessels are mildly distended. There are no infiltrates. No effusion identified. IMPRESSION: Mild pulmonary edema Electronically signed by Shankar Lemus 05/27/2019 9:37 AM 05/27/19936 Interpreting Physician: Shankar Lemus MD Dictated Date/Time: 05/27/19936 cc: Hazel Scott DO; Paula Chan MD) - CT/MRI 1 CT Study: Angiogram (head) Impression: See EMR Report (EXAM: CT ANGIOGRAM HEAD HISTORY: severe ROSE. TECHNIQUE: CT head with contrast. Angiogram protocol with MIP images. COMPARISON: 05/15/2019 FINDINGS: No parenchymal hemorrhage. No epidural or subdural hematoma. No subarachnoid hemorrhage. Mild chronic microvascular ischemic changes. No mass or midline shift. No hydrocephalus. No sinus opacification. Normal flow in each distal internal carotid artery. Normal flow within the anterior and middle cerebral arteries. No occlusion or stenosis. Normal flow in the basilar artery and posterior cerebral arteries. There are small posterior communicating arteries. This is a normal variant. No aneurysm. IMPRESSION: Normal CT angiogram of the head. This exam was performed using automated exposure control, adjustment of mA or kV according to patient size, and/or use of iterative reconstruction technique. Electronically signed by Shankar Lemus 05/27/2019 10:05 AM 05/27/19 1005 Interpreting Physician: Shankar Lemus MD Dictated Date/Time: 05/27/19 1002 cc: Hazel Scott DO; Paula Chan MD) - CONSULTS/PCP/HOSPITALIST Notification #1 *Consult/PCP/Hospitalist*: hospitalist Consult Disposition: Admit Departure - Departure Date of Disposition Decision: 05/27/19 Time of Disposition Decision: 11:30 DIAGNOSIS: Hypertensive urgency, TIA (transient ischemic attack) Disposition: ADMITTED INPATIENT 09 Certified Medical Emergency: Emergent Condition: Fair - Critical Care Note This patient required my direct & personal management of CC.: No Attestation - Physician/ GERRI Attestation Patient care was provided by Advanced Practice Provider:: No The physician spent face to face time with patient:: Yes Advanced Practice Provider documentation review:: Supervising physician onsite and consulted in the evaluation and care of this patient. The physician did have a face to face encounter with the patient. This chart was documented by the indicated scribe, (Paty Jama Scribe) and accurately reflects the services I performed and decisions made by Tyler nash Kelly R., DO, as attested by the provider's signature.
--- NOTE | 2019-05-27 10:32 | EKG Report ---
Test Performed on : 05/27/2019 07:33:06 AM Test Reason : stroke symptoms Blood Pressure : / mmHG Vent. Rate : 051 BPM Atrial Rate : 051 BPM P-R Int : 162 ms QRS Dur : 102 ms QT Int : 444 ms P-R-T Axes : 051 026 074 degrees QTc Int : 409 ms Sinus bradycardia. Otherwise normal ECG When compared with ECG of 15-MAY-2019 09:21, (Unconfirmed) No significant change was found Unconfirmed Result
[2019-05-27] MEDS ORDERED: APRESOLINE IV PRN (13:03)
[2019-05-27] MEDS ORDERED: NORCO-5 PO PRN (13:19)
[2019-05-27] MEDS ORDERED: TYLENOL PO PRN (13:20)
[2019-05-27] MEDS ORDERED: ZOFRAN IV PRN (13:20)
[2019-05-27] MEDS: NORVASC PO SCH (13:38)
[2019-05-27] MEDS ORDERED: PRAVACHOL PO SCH (21:00)
--- NOTE | 2019-05-27 22:37 | HISTORY AND PHYSICAL ---
CHIEF COMPLAINT: Strokelike symptoms. HISTORY OF PRESENT ILLNESS: The patient is an 78-year-old male who presented to the ER with slurred speech, headache, neck pain and numbness. He notes that his slurred speech and numbness have improved. He denies any current chest pains or palpitations. Denies any fevers or chills. He notes that the symptoms are similar to what he had a few weeks ago. He notes, however, after leaving the hospital a few weeks ago he has had no further symptoms whatsoever until this morning. ALLERGIES: Sulfa. MEDICATIONS: Norvasc 10, aspirin 81, B12, Pravachol, Paxil and lisinopril. PAST MEDICAL HISTORY: Hypertension, known coronary artery disease, high cholesterol, history of CVA, chronic headaches, history of kidney stones. REVIEW OF SYSTEMS: This morning he has had a headache, chest pain and pressure, shortness of breath and slurred speech, which appears to be improving. He has had numbness on his right side which also is improving. Denies any weakness. Denies any blurred vision or change in vision. Denies any confusion or disorientation. Denies focalized weakness. He did have numbness as noted. Denies dysuria, frequency, urgency, hesitancy, constipation, melena or hematochezia. PAST SURGICAL HISTORY: He has had lithotripsy and cardiac stenting. FAMILY HISTORY: Noncontributory. SOCIAL HISTORY: The patient continues to smoke a cigar 2-3 times a day. He denies alcohol or any other illicit substance use. PHYSICAL EXAMINATION: VITAL SIGNS: Reviewed. Temperature 97.6 degrees, pulse 48, respiratory 20. BP 212/90, currently 170/100. GENERAL: The patient is awake, alert. He is in no respiratory distress. His speech appears normal and intact. HEENT: Normocephalic. NECK: Supple. CARDIOVASCULAR: Regular rate. No murmurs. CHEST: Clear, nonlabored. ABDOMEN: Soft, nondistended, nontender. EXTREMITIES: He is noted to move all extremities. He does not have any notable focal weakness. NEUROLOGIC: He is awake, alert, oriented. His speech appears regular and intact. SKIN: Warm and dry. No rashes. ASSESSMENT: 1. Acute cerebrovascular accident, although his symptoms appear to be resolving. 2. High cholesterol. 3. Hypertension with hypertensive urgency. Blood pressures are improving at this point. PLAN: We are going to admit the patient to the hospital. He does have a carotid Doppler that was negative as well as a normal echocardiogram a few weeks ago. We are going to admit him to the hospital, follow his blood pressures, place him on hydralazine and restart his home blood pressure medication. The family notes that his blood pressures at home have been normal until this morning, very similar to his previous hospitalization. I am going to add Plavix and we will follow. cc: Fredy Lowe MD
[2019-05-28 07:47] VITALS: BP 157/63
[2019-05-28] MEDS: NORVASC PO SCH (08:14)
[2019-05-28] MEDS ORDERED: PRINIVIL PO SCH (09:00)
[2019-05-28] MEDS ORDERED: PLAVIX PO SCH (09:00)
[2019-05-28] MEDS ORDERED: ASPIRIN PO SCH (09:00)
[2019-05-28] MEDS ORDERED: VITAMIN B-12 SL SCH (09:00)
[2019-05-28] MEDS ORDERED: ZYLOPRIM PO SCH (09:00)
[2019-05-28] MEDS ORDERED: PAXIL PO SCH (09:00)
--- NOTE | 2019-05-29 18:41 | DISCHARGE SUMMARY ---
ADMISSION DATE: 05/27/2019 DISCHARGE DATE: 05/28/2019 DISCHARGE DIAGNOSES: 1. Hypertensive urgency. Resolved. Blood pressure actually is very good, 127/67, 146/53 on discharge. 2. Transient ischemic attack. Resolved. 3. High cholesterol. 4. Others. CONSULTATIONS: None. PROCEDURES: None. BRIEF HOSPITAL COURSE: The patient was admitted to the hospital as he was previously with acute neurologic-type symptom. He had slurred speech, numbness, tingling. All of this quickly resolved once his blood pressure was brought back under control. Certainly, I am concerned what his blood pressure may be doing at home. However, while he is here, it has been improved. DISPOSITION: Patient will be discharged home. PLAN: He a complete workup the last time he was in the hospital a couple of weeks ago, and certainly no reason to repeat all of those tests. He will continue his home blood pressure medications. I asked his family to check his blood pressure twice a day. I did write a prescription for hydralazine 25 mg 3 times a day as needed if blood pressure is greater than 160 systolic. Discussed with them to follow up in a week with primary care and take blood pressure logs. Blood pressure medications can be adjusted from there. The family is aware and agrees. We also started him on Plavix while he was in the hospital this go around. cc: Fredy Lowe MD
== END 2019-05-28 10:41 | disposition home or self-care (01) | DRG 69 ==
LOC: P.ED 07:22 → P.MEDSURG 07:23
PROVIDERS: ATTEND Family Medicine